=== PATIENT | female | born 1950 | race Caucasian/White ===

== ENCOUNTER 2018-10-25 21:43 | Emergency (ER) | payer MEDICARE, BC, OTHER ==
[~2018-10-25] VITALS: Ht 162.6 cm; Wt 83.5 kg
[~2018-10-25 21:43] MED LIST: ALENDRONATE SOD70 MG PO; AMARYL4 MG PO; HTN MED; HUMALOG100 UNIT/1 SUBQ; HYDROCODONE-AP1 EAC6 PO; IBUPROFEN 800800 M1 PO; LEVEMIR; LONG ACTING INSULIN; METFORMIN HCL500 MG PO; NEURONTIN300 MG PO; NORCO 5-325 TA1 EACH PO; ZESTORETIC 20-1 EACH PO; ZOCOR 10 MG TAB10 MG PO
[2018-10-25] MEDS ORDERED: HUMALOG100 UNIT/2 (22:00)
[2018-10-25] MEDS ORDERED: TRULICITY0.75 MG/0. (22:00)
[2018-10-25] MEDS ORDERED: TOUJEO MAX300 UNIT/1 (22:01)
[2018-10-25] MEDS ORDERED: KEFLEX500 M1 PO (23:05)
[2018-10-25 23:40] VITALS: BP 168/78
== END 2018-10-25 23:41 | disposition home or self-care (01) ==
LOC: M.ERS 21:43
DX: M71.521 Other bursitis, not elsewhere classified, right elbow (principal); E11.9 Type 2 diabetes mellitus without complications; I10 Essential (primary) hypertension; Z90.710 Acquired absence of both cervix and uterus